=== PATIENT | male | born 1970 | race Caucasian/White ===

== ENCOUNTER 2021-08-15 12:41 | Emergency (ER) | payer OTHER ==
[~2021-08-15] VITALS: Ht 170.1 cm; Wt 93.0 kg
== END 2021-08-17 00:31 | disposition short-term general hospital (02) ==
LOC: ED 12:41
DX: S62.621B Displaced fracture of middle phalanx of left index finger, initial encounter for open fracture (principal); W18.39XA Other fall on same level, initial encounter; Y93.89 Activity, other specified; Y92.89 Other specified places as the place of occurrence of the external cause; Y99.8 Other external cause status